=== PATIENT | female | born 1995 | race African-American/Black ===

== ENCOUNTER 2017-01-10 08:42 | Emergency (ER) | payer OTHER ==
[~2017-01-10] VITALS: Ht 167.6 cm; Wt 59.0 kg
[2017-01-10 09:27] VITALS: BP 106/68
[2017-01-10] MEDS ORDERED: KETOROLAC TROMETH 30 MG/ML 1ML VIAL IM ONE (10:00)
== END 2017-01-10 10:54 | disposition home or self-care (01) ==
LOC: ER 08:46
DX: M54.5 Low back pain (principal)
CPT/HCPCS: 72100; 96372; 99284; J1885

== ENCOUNTER 2017-01-15 15:05 | Emergency (ER) | payer OTHER ==
[~2017-01-15] VITALS: Ht 167.6 cm; Wt 59.4 kg
[2017-01-15 16:00] VITALS: BP 118/60
== END 2017-01-15 16:59 | disposition home or self-care (01) ==
LOC: ER 15:05
DX: G89.29 Other chronic pain (principal); M54.5 Low back pain